=== PATIENT | male | born 1990 | race African-American/Black ===

== ENCOUNTER 2024-01-29 20:07 | Emergency (ER) | payer OTHER, SELFPAY ==
[2024-01-29 20:09] VITALS: BP 165/90; PULSE 70; TEMP 36.9; O2SAT 98; BMI 32.9
--- NOTE | 2024-01-29 20:35 | ED_ITS ---
HPI - Dental/Oral General Chief complaint: Dental/Oral Stated complaint: Dental Pain Time Seen by Provider: 01/29/24 20:16 Source: patient Mode of arrival: walk-in Limitations: no limitations History of Present Illness HPI Narrative: 34-year-old male presents to the ER with concerns of dental pain. Pertinent history of liver transplant, takes Bactrim 3 times a week. Patient has been Evaluated by [facility] dent[facility] for possible dental extraction. Patient states he requires general sedation for the procedure and has known problematic tooth in the left lower rear and left upper rear molar region. Patient reports increasing pain in the left lower rear molar region subjective swelling. Denies fever or chills. States he has been using Tylenol and Motrin at home without relief and upon calling his dentist was referred to the ER for pain control. Patient has not been prescribed antibiotics for his dental pain but is scheduled for extraction on February 15 at the [facility] where he also had his liver transplant. Patient has family present at bedside that drove him to the ER this evening.Patient reports pain can be severe when trying to rest. MD Complaint: Reports tooth pain Relieving factors: nothing Treatment prior to arrival: oral analgesic Related Data Home Medications ?Medication ?Instructions ?Recorded ?Confirmed prednisone 5 mg tablet mg 01/29/24 Previous Rx's ?Medication ?Instructions ?Recorded hydrocodone 5 mg-acetaminophen 325 1 tab PO Q6H PRN pain 2 days #8 01/29/24 mg tablet tabs ibuprofen 600 mg tablet 600 mg PO TID PRN pain #30 tabs 01/29/24 penicillin V potassium 500 mg 500 mg PO TID #30 tabs 01/29/24 tablet Allergies Allergy/AdvReac Type Severity Reaction Status Date / Time No Known Drug Allergies Allergy Verified 01/29/24 20:14 Review of Systems ROS Constitutional Denies: fever, chills or change in weight Eyes Denies: change in vision Ears, nose, mouth, and throat Reports: mouth pain (dental pain); Denies: throat pain, neck pain or throat swelling Cardiovascular Denies: chest pain or palpitations Respiratory Denies: shortness of breath, cough, wheezing or stridor Gastrointestinal Denies: abdominal pain, nausea or vomiting Genitourinary Denies: painful urination or urinary frequency Musculoskeletal Denies: back pain or neck pain Integumentary/Breast Denies: rash or itching Neurological Denies: headache Exam Narrative Exam Narrative: Nurses notes reviewed and patient is noted to be non-hypoxic. General: The patient is uncomfortable noting dental pain, alert and oriented x3, well appearing otherwise, non toxic Head: Atraumatic and normocephalic. Eyes: Normal conjunctiva, no exudates. ENT: The oropharynx is normal. No pharyngeal erythema, uvular edema, tonsillar exudates, asymmetry or trismus. Uvula is midline. Mouth is normal to inspection , multiple missing teeth from prior extractions. With the exception of a pain on percussion of the tooth left upper and left lower rear molars. + evidence of dental caries and appearance concerning for acute on chronic fracture of the lower rear molar. There is no evidence of facial asymmetry or abscess formation. Floor of the mouth is soft. No tenderness in the submental or submandibular space. No tongue elevation or deviation. The patient has no evidence of periapical abscess, gingivitis, ANUG or other acute pathology. Airway is patent. Neck: The neck demonstrates normal range of motion. No meningeals signs are present. No stridor. No masses or lymphandenopathy noted. Respiratory: No acute distress, lungs are clear to auscultation, no wheezing, rhonchi, or rales noted. No stridor or retractions are noted. Cardiovascular: Regular rate and rhythm Skin: The skin exam shows no evidence of rashes Neuro: Alert and oriented x4, normal speech Lymphatic: No cervical lymphadenopathy Constitutional Vital Signs, click to edit/add: Last Vital Signs Temp 98.4 F 01/29/24 20:09 Pulse 70 01/29/24 20:09 Resp 16 01/29/24 20:09 BP 165/90 H 01/29/24 20:09 Pulse Ox 98 01/29/24 20:09 O2 Del Method Room Air 01/29/24 20:09 Course Vital Signs Vital signs: Vital Signs Temperature 98.4 F 01/29/24 20:09 Pulse Rate 70 01/29/24 20:09 Respiratory Rate 16 01/29/24 20:09 Blood Pressure 165/90 H 01/29/24 20:09 Pulse Oximetry 98 01/29/24 20:09 Oxygen Delivery Method Room Air 01/29/24 20:09 Temperature 98.4 F 01/29/24 20:09 Pulse Rate 70 01/29/24 20:09 Respiratory Rate 16 01/29/24 20:09 Blood Pressure 165/90 H 01/29/24 20:09 Pulse Oximetry 98 01/29/24 20:09 Oxygen Delivery Method Room Air 01/29/24 20:09 MDM - Dental/Oral MDM Narrative Medical decision making narrative: oarrs Reviewed and consistent with history, patient noting severe pain. We discussed location of tooth difficult for dental block, patient admits this is why he is opting for general sedation for extraction. He is at risk for immune compromise with his liver transplant, we discussed starting penicillin VK with risks and benefits discussed as he has no evidence of abscess at this time but is at risk for infection given appearance of the tooth. We discussed Motrin daily for pain, he will be given a short prescription for [place] to help with acute symptoms until antibiotic and Motrin provide more relief. Topical dental analgesia also provided. He is encouraged to call his dentist daily to discuss cancellation list for earlier definitive treatment to avoid potential complication from infectious process. Patient thankful and had no further concerns or questions. The patient is to followup with primary care physician in next 2-3 days or to return to the emergency department should any of the signs or symptoms worsen or new symptoms develop. Patient had questions answered. The patient agrees with the following Diagnosis and Treatment plan and the patient will be discharged home. Discharge Plan Discharge Stand Alone Forms: Portal Instructions Chief Complaint: Dental/Oral Clinical Impression: Toothache, Dental caries, Fracture of tooth Patient Disposition: Home, Self-Care Time of Disposition Decision: 20:44 Condition: Good Prescriptions / Home Meds: New penicillin V potassium 500 mg tablet 500 mg PO TID Qty: 30 0RF hydrocodone-acetaminophen 5-325 mg tablet 1 tab PO Q6H PRN (Reason: pain) 2 Days Qty: 8 0RF ibuprofen 600 mg tablet 600 mg PO TID PRN (Reason: pain) Qty: 30 0RF No Action prednisone 5 mg tablet Print Language: Maltese Instructions: Toothache (ED) Additional Instructions: Keep appt with [facility], call daily for cancellation Referrals: Physician,Non-Staff, MD [Primary Care Provider] - 1 week
[2024-01-29] MEDS: PENICILLIN V POTASSIUM 250 MG TABLET 500 MG PO (20:49)
[2024-01-29] MEDS: HYDROCODONE/ACET 5-325 MG TABLET 1 TAB PO ×2 (20:49→20:50)
[2024-01-29] MEDS: BENZOCAINE 30 ML, lidocaine HCL 15 ML MM (21:09)
== END 2024-01-29 21:19 | disposition home or self-care (01) ==
LOC: ER 21:00
PROVIDERS: Emergency Provider Emergency Medicine
DX: K08.89 Other specified disorders of teeth and supporting structures (principal); K02.9 Dental caries, unspecified; S02.5XXA Fracture of tooth (traumatic), initial encounter for closed fracture; X58.XXXA Exposure to other specified factors, initial encounter; Z94.4 Liver transplant status
CPT/HCPCS: 99283